=== PATIENT | female | born 1965 | race Caucasian/White ===

== ENCOUNTER 2023-01-17 12:58 | Inpatient (IN) | payer MEDICAID, OTHER ==
[~2023-01-17] VITALS: Ht 157.5 cm; Wt 47.2 kg
[2023-01-17] MEDS ORDERED: LORAZEPAM 2MG/ML CPJ IV ONE ×2 (14:00→19:15)
[2023-01-17] MEDS ORDERED: IOHEXOL-350 100 ML BOTTLE ONE (14:37)
[2023-01-17 16:54] LABS: BASOPHILS % 0.5 % (0.0-2.0); EOSINOPHILS % 0.5 % (0.0-5.0); HEMATOCRIT. 37.1 % (36.0-48.0); HEMOGLOBIN. 12.8 g/dL (12.0-16.0); LYMPHOCYTES % 8.9 % (20.0-50.0); MEAN CORPUSCULAR HEMOGLOBIN 33.8 pg (28.0-32.0); MEAN CORPUSCULAR HGB CONC 34.4 g/dL (31.0-37.0); MEAN CORPUSCULAR VOLUME 98.4 fL (81.0-99.0); MONOCYTES % 4.8 % (2.0-8.0); NEUTROPHILS % 85.3 % (40.0-76.0); RED BLOOD CELL COUNT 3.77 mill/uL (4.2-5.4); RED CELL DISTRIBUTION WIDTH 12.7 % (11.6-14.6); WHITE BLOOD COUNT 6.6 x1000/uL (4.5-11.0)
[2023-01-17 16:58] LABS: DIFFERENTIAL COMMENT 1
[2023-01-17 17:00] LABS: CHLORIDE 100 mEq/L (98-107); INDEX HEMOLYSI 1 (1-3); INDEX ICTERIC 1 (1-4); INDEX LIPEMIC 1 (1-3); POTASSIUM 4.2 mEq/L (3.5-5.1); SODIUM 132 mEq/L (136-145)
[2023-01-17 17:11] LABS: ALANINE AMINOTRANSFERASE 67 IU/L (13-61); ALBUMIN 3.9 g/dL (3.4-5.0); ASPARTATE AMINOTRANSFERASE 67 IU/L (15-37); BILIRUBIN TOTAL 0.5 mg/dL (0.1-1.0); CALCIUM 9.1 mg/dL (8.5-10.1); CARBON DIOXIDE 28 mEq/L (21-32); CREATININE 0.5 mg/dL (0.6-1.3); ETHANOL BLOOD < 10 mg/dL (-10); GLUCOSE 91 mg/dL (70-105); PROTEIN TOTAL 8.7 g/dL (6.0-8.3); UREA NITROGEN BLOOD 9 mg/dL (7-21)
[2023-01-17 17:30] LABS: AMMONIA 38 uMol/L (<32)
[2023-01-17 17:31] LABS: INR 1.1; PROTHROMBIN TIME 11.3 sec (9.6-11.0)
[2023-01-17 17:33] LABS: PLATELET 175 x1000/uL (130-400)
[2023-01-17 17:34] LABS: MEAN PLATELET VOLUME 8.4 fl (7.4-10.4)
[2023-01-17 17:37] LABS: TROPONIN I HIGH SENSITIVITY 354 ng/L (<54)
[2023-01-17] MEDS ORDERED: ACETAMINOPHEN 325MG TABLET PO PRN ×2 (20:15)
[2023-01-17] MEDS ORDERED: ONDANSETRON HCL 4MG/2ML INJ IV PRN (20:15)
[2023-01-17] MEDS ORDERED: DOCUSATE SODIUM 100MG CAPSULE PO PRN (20:15)
[2023-01-17] MEDS ORDERED: LORAZEPAM 0.5MG TABLET PO PRN (20:15)
[2023-01-17] MEDS ORDERED: NA PHOS,M-B/NA PHOS,DI-BA ENEMA 118ML PR PRN (20:15)
[2023-01-17] MEDS ORDERED: CLONIDINE 0.1MG TABLET PO PRN (20:15)
[2023-01-17] MEDS ORDERED: IPRATROPIUM/ALBUTEROL 0.5-3(2.5)MG/3ML NEB HHN PRN (20:15)
[2023-01-17] MEDS ORDERED: MAGNESIUM/ALUMINUM HYDROXIDE/SIMETHICONE 30ML UDC PO PRN (20:15)
[2023-01-17] MEDS ORDERED: LEVETIRACETAM 1000MG PREMIX 1,000 ML IV NR (20:15)
[2023-01-17] MEDS ORDERED: GUAIFENESIN 200MG/10ML SUGAR FREE UDC PO PRN (20:15)
[2023-01-17] MEDS ORDERED: NITROGLYCERIN 50MG PREMIX 250 ML IV SCH (22:30)
[2023-01-17] MEDS ORDERED: SODIUM CHLORIDE 0.9% 1,000 ML IV SCH (23:45)
[2023-01-18] MEDS: ENOXAPARIN 40MG/0.4ML SYR SUBCUT SCH ×2 (00:40→21:24)
[2023-01-18] MEDS ORDERED: LEVETIRACETAM 500 MG in SODIUM CHLORIDE 0.9% 100 ML IV SCH (01:00)
[2023-01-18 01:34] LABS: CREATINE KINASE MB FRACTION 7.7 ng/mL (0.5-3.6)
[2023-01-18] MEDS ORDERED: LORAZEPAM 2MG/ML CPJ IV NR (01:45)
[2023-01-18] MEDS ORDERED: FOLIC ACID 1 MG, THIAMINE HCL 100 MG, MVI, ADULT NO.1 10 ML in SODIUM CHLORIDE 0.9% 1,0... IV NR ×4 (02:00)
[2023-01-18 02:34] LABS: CLARITY URINE CLEAR (CLEAR); COLOR URINE YELLOW (YELLOW); GLUCOSE URINE NEGATIVE (NEGATIVE); KETONES URINE 1+ (NEGATIVE); LEUKOCYTE ESTERASE URINE 1+ (NEGATIVE); NITRITE URINE POSITIVE (NEGATIVE); OCCULT BLOOD URINE 3+ (NEGATIVE); PH URINE 5.5 (4.5-8.0); PROTEIN URINE NEGATIVE (NEGATIVE); SPECIFIC GRAVITY URINE 1.049 (1.005-1.030); UROBILINOGEN URINE 0.2 E.U./dL (0.2-1.0)
[2023-01-18 02:45] LABS: *AMPHETAMINES SCREEN URINE PRESUMTIVE POSITIVE (NEGATIVE); *BARBITURATES SCREEN URINE NEGATIVE (NEGATIVE); *BENZODIAZEPINES SCREEN URINE NEGATIVE (NEGATIVE); *COCAINE SCREEN URINE NEGATIVE (NEGATIVE); CANNABINOID URINE SCREEN NEGATIVE (NEGATIVE); ECSTASY MDMA SCREEN URINE CONF.TEST INDICATED (NEGATIVE); METHADONE URINE SCREEN NEGATIVE (NEGATIVE); OPIATES URINE SCREEN NEGATIVE (NEGATIVE); PHENCYCLIDINE URINE SCREEN PRESUMTIVE POSITIVE (NEGATIVE)
[2023-01-18 02:47] LABS: WBC URINE 15-25 /hpf (0-2)
[2023-01-18 02:48] LABS: BACTERIA URINE 3+; SQUAMOUS EPITHELIAL CELL URINE RARE /lpf (RARE/1+)
[2023-01-18 03:30] VITALS: BP 104/66; PULSE 79; RESP 12; TEMP 97.9
[2023-01-18] MEDS: LEVETIRACETAM 500MG PREMIX 100 ML IV SCH ×2 (05:41→18:14)
[2023-01-18 06:11] LABS: BASOPHILS % 0.8 % (0.0-2.0); EOSINOPHILS % 0.2 % (0.0-5.0); HEMATOCRIT. 36.8 % (36.0-48.0); HEMOGLOBIN. 12.7 g/dL (12.0-16.0); LYMPHOCYTES % 13.4 % (20.0-50.0); MEAN CORPUSCULAR HEMOGLOBIN 33.8 pg (28.0-32.0); MEAN CORPUSCULAR HGB CONC 34.6 g/dL (31.0-37.0); MEAN CORPUSCULAR VOLUME 97.6 fL (81.0-99.0); MEAN PLATELET VOLUME 8.8 fl (7.4-10.4); MONOCYTES % 10.1 % (2.0-8.0); NEUTROPHILS % 75.5 % (40.0-76.0); PLATELET 176 x1000/uL (130-400); RED BLOOD CELL COUNT 3.77 mill/uL (4.2-5.4); RED CELL DISTRIBUTION WIDTH 12.5 % (11.6-14.6); WHITE BLOOD COUNT 5.2 x1000/uL (4.5-11.0)
[2023-01-18] MEDS: LORAZEPAM 2MG/ML CPJ IV PRN ×2 (06:36→13:04)
[2023-01-18 07:09] LABS: CHLORIDE 100 mEq/L (98-107); INDEX HEMOLYSI 1 (1-3); INDEX ICTERIC 1 (1-4); INDEX LIPEMIC 1 (1-3); POTASSIUM 3.5 mEq/L (3.5-5.1); SODIUM 132 mEq/L (136-145)
[2023-01-18 07:21] LABS: CREATINE KINASE MB FRACTION 8.8 ng/mL (0.5-3.6)
[2023-01-18] MEDS ORDERED: CEFTRIAXONE 1GM PREMIX 50 ML IV SCH (07:30)
[2023-01-18 07:34] LABS: ALANINE AMINOTRANSFERASE 57 IU/L (13-61); ALBUMIN 3.7 g/dL (3.4-5.0); ASPARTATE AMINOTRANSFERASE 48 IU/L (15-37); BILIRUBIN TOTAL 0.7 mg/dL (0.1-1.0); CALCIUM 8.8 mg/dL (8.5-10.1); CARBON DIOXIDE 22 mEq/L (21-32); CREATININE 0.4 mg/dL (0.6-1.3); GLUCOSE 80 mg/dL (70-105); T4 FREE 0.76 ng/dL (0.76-1.46); THYROID STIMULATING HORMONE 0.71 uIU/mL (0.36-3.74); UREA NITROGEN BLOOD 13 mg/dL (7-21)
[2023-01-18 08:00] VITALS: BP 121/84; PULSE 78; RESP 20; TEMP 97
[2023-01-18] MEDS ORDERED: ASPIRIN 300MG SUPP PR SCH (09:00)
[2023-01-18] MEDS ORDERED: THIAMINE HCL 100 MG/1 ML 2ML VIAL IM SCH (09:00)
[2023-01-18] MEDS ORDERED: FOLIC ACID 1 MG in SODIUM CHLORIDE 0.9% 500 ML IV NR ×2 (10:00→13:00)
[2023-01-18] MEDS: CEFTRIAXONE 1,000 MG in DEXTROSE 5% WATER 50 ML IV SCH (10:05)
[2023-01-18] MEDS: FAMOTIDINE 20MG/2ML VIAL IV SCH (10:06)
[2023-01-18 12:00] VITALS: BP 119/82; PULSE 85; RESP 20; TEMP 97
[2023-01-18 12:05] LABS: T4 FREE 0.74 ng/dL (0.76-1.46)
[2023-01-18 12:39] LABS: BG BASE EXCESS 0.4 mmol/L (-2.0-2.0); BG CARBOXYHEMOGLOBIN 0.4 % (0.5-1.5); BG FRACTION INSPIRED OXYGEN 21; BG HCO3 ACT 24.4 mmol/L (22.0-26.0); BG METHEMOGLOBIN 0.2 % (0.0-1.5); BG OXYHEMOGLOBIN 96.4 % (94.0-97.0); BG PCO2 37.3 mmHg (35.0-45.0); BG PH 7.434 (7.350-7.450); BG PO2 89.8 mmHg (75.0-100.0); BG SAMPLE SITE LEFT BRACHIAL; BG TOTAL HEMOGLOBIN 13.7 g/dL (12.0-18.0); BG VENT MODE ROOM AIR
[2023-01-18] MEDS: SODIUM CHLORIDE 0.9% 1,000 ML IV SCH (12:52)
[2023-01-18] MEDS ORDERED: HALOPERIDOL 0.5MG TABLET PO PRN (13:30)
[2023-01-18 16:00] VITALS: BP 136/76; PULSE 99; RESP 20; TEMP 97
[2023-01-18] MEDS ORDERED: FAMOTIDINE 20MG/2ML VIAL IV SCH (18:15)
[2023-01-18] MEDS: LORAZEPAM 2MG/ML CPJ IM PRN (18:26)
[2023-01-18 20:00] VITALS: BP 131/84; PULSE 108; RESP 18; TEMP 96.9
[2023-01-18 21:09] LABS: TROPONIN I HIGH SENSITIVITY 551 ng/L (<54)
[2023-01-18] MEDS ORDERED: FOLIC ACID 1 MG, THIAMINE HCL 100 MG, MVI, ADULT NO.1 10 ML in DEXTROSE 5% WATER 1,000 ML IV NR ×4 (22:00)
[2023-01-19 00:01] VITALS: BP 117/70; PULSE 94; RESP 18; TEMP 97.4
[2023-01-19] MEDS: LORAZEPAM 2MG/ML CPJ IM PRN ×2 (00:32→17:27)
[2023-01-19 01:57] LABS: TROPONIN I HIGH SENSITIVITY 441 ng/L (<54)
[2023-01-19 04:00] VITALS: BP 133/74; PULSE 97; RESP 18; TEMP 97.1
[2023-01-19] MEDS: LEVETIRACETAM 500MG PREMIX 100 ML IV SCH ×2 (05:17→17:01)
[2023-01-19 05:40] LABS: CALCIUM 8.9 mg/dL (8.5-10.1); CHLORIDE 104 mEq/L (98-107); INDEX HEMOLYSI 1 (1-3); INDEX ICTERIC 1 (1-4); INDEX LIPEMIC 1 (1-3); POTASSIUM 3.8 mEq/L (3.5-5.1); SODIUM 137 mEq/L (136-145)
[2023-01-19 05:43] LABS: BASOPHILS % 0.4 % (0.0-2.0); EOSINOPHILS % 0.2 % (0.0-5.0); HEMATOCRIT. 35.3 % (36.0-48.0); HEMOGLOBIN. 12.3 g/dL (12.0-16.0); LYMPHOCYTES % 18.1 % (20.0-50.0); MEAN CORPUSCULAR HEMOGLOBIN 34.4 pg (28.0-32.0); MEAN CORPUSCULAR HGB CONC 34.9 g/dL (31.0-37.0); MEAN CORPUSCULAR VOLUME 98.6 fL (81.0-99.0); MEAN PLATELET VOLUME 8.6 fl (7.4-10.4); MONOCYTES % 8.6 % (2.0-8.0); NEUTROPHILS % 72.7 % (40.0-76.0); PLATELET 180 x1000/uL (130-400); RED BLOOD CELL COUNT 3.58 mill/uL (4.2-5.4); WHITE BLOOD COUNT 6.9 x1000/uL (4.5-11.0)
[2023-01-19 05:45] LABS: CARBON DIOXIDE 26 mEq/L (21-32); CREATININE 0.5 mg/dL (0.6-1.3); GLUCOSE 81 mg/dL (70-105); UREA NITROGEN BLOOD 12 mg/dL (7-21)
[2023-01-19 07:45] LABS: TROPONIN I HIGH SENSITIVITY 422 ng/L (<54)
[2023-01-19 08:00] VITALS: BP 123/69; PULSE 88; RESP 22; TEMP 98
[2023-01-19] MEDS ORDERED: THIAMINE HCL 100 MG/1 ML 2ML VIAL IM SCH (09:00)
[2023-01-19] MEDS: ASPIRIN 81MG TABLET PO SCH (09:00)
[2023-01-19] MEDS: FAMOTIDINE 20MG/2ML VIAL IV SCH (09:47)
[2023-01-19] MEDS: CEFTRIAXONE 1,000 MG in DEXTROSE 5% WATER 50 ML IV SCH (09:47)
[2023-01-19] MEDS: SODIUM CHLORIDE 0.9% 1,000 ML IV SCH ×2 (10:08→17:37)
[2023-01-19 12:00] VITALS: BP 120/60; PULSE 96; RESP 22; TEMP 98
[2023-01-19] MEDS: LORAZEPAM 2MG/ML CPJ IV PRN (12:28)
[2023-01-19 16:00] VITALS: BP 125/71; PULSE 78; RESP 20; TEMP 97
[2023-01-19 20:00] VITALS: BP 140/79; PULSE 91; RESP 20; TEMP 99
[2023-01-19] MEDS: ENOXAPARIN 40MG/0.4ML SYR SUBCUT SCH (20:33)
[2023-01-19 21:13] LABS: TROPONIN I HIGH SENSITIVITY 247 ng/L (<54)
[2023-01-20] VITALS: BP 132/81; PULSE 88; RESP 20; TEMP 98
[2023-01-20 01:51] LABS: TROPONIN I HIGH SENSITIVITY 224 ng/L (<54)
[2023-01-20] MEDS: LORAZEPAM 2MG/ML CPJ IM PRN ×2 (03:15→03:18)
[2023-01-20 04:00] VITALS: BP 101/58; PULSE 67; RESP 20; TEMP 98.8
[2023-01-20] MEDS: SODIUM CHLORIDE 0.9% 1,000 ML IV SCH ×2 (04:45→14:45)
[2023-01-20] MEDS: LEVETIRACETAM 500MG PREMIX 100 ML IV SCH ×2 (06:42→18:39)
[2023-01-20 07:04] LABS: HEMATOCRIT 32.1 % (36.0-48.0); HEMOGLOBIN 11.1 g/dL (12.0-16.0); MEAN CORPUSCULAR HEMOGLOBIN 34.1 pg (28.0-32.0); MEAN CORPUSCULAR HGB CONC 34.6 g/dL (31.0-37.0); MEAN CORPUSCULAR VOLUME 98.6 fL (81.0-99.0); PLATELET 158 x1000/uL (130-400); RED BLOOD CELL COUNT 3.25 mill/uL (4.2-5.4); RED CELL DISTRIBUTION WIDTH 12.5 % (11.6-14.6); WHITE BLOOD COUNT 4.6 x1000/uL (4.5-11.0)
[2023-01-20 07:33] LABS: CHLORIDE 108 mEq/L (98-107); INDEX HEMOLYSI 1 (1-3); INDEX ICTERIC 1 (1-4); INDEX LIPEMIC 1 (1-3); SODIUM 139 mEq/L (136-145)
[2023-01-20 07:42] LABS: CALCIUM 7.7 mg/dL (8.5-10.1); CARBON DIOXIDE 23 mEq/L (21-32); CREATININE 0.5 mg/dL (0.6-1.3); GLUCOSE 61 mg/dL (70-105); UREA NITROGEN BLOOD 10 mg/dL (7-21)
[2023-01-20 08:00] VITALS: BP 128/77; PULSE 110; RESP 20; TEMP 97.7
[2023-01-20 08:32] LABS: POTASSIUM 2.6 mEq/L (3.5-5.1); TROPONIN I HIGH SENSITIVITY 145 ng/L (<54)
[2023-01-20] MEDS: ASPIRIN 81MG TABLET PO SCH (08:48)
[2023-01-20] MEDS ORDERED: POTASSIUM CHLORIDE 20MEQ TABLET SR PO NR (09:58)
[2023-01-20] MEDS: FAMOTIDINE 20MG/2ML VIAL IV SCH (11:18)
[2023-01-20] MEDS: CEFTRIAXONE 1,000 MG in DEXTROSE 5% WATER 50 ML IV SCH (11:18)
[2023-01-20] MEDS ORDERED: POTASSIUM CHLORIDE INJ 40 MEQ in DEXT 5% WATER 250 ML IV NR (11:30)
[2023-01-20 12:00] VITALS: BP 145/73; PULSE 91; RESP 20; TEMP 98.3
[2023-01-20] MEDS: LORAZEPAM 2MG/ML CPJ IV PRN ×2 (12:05→20:28)
[2023-01-20 16:00] VITALS: BP 130/70; PULSE 78; RESP 16; TEMP 97.9
[2023-01-20 20:00] VITALS: BP 130/65; PULSE 88; RESP 20; TEMP 97.4
[2023-01-20] MEDS: ENOXAPARIN 40MG/0.4ML SYR SUBCUT SCH (20:27)
[2023-01-20 21:25] LABS: PHOSPHORUS 2.5 mg/dL (2.5-4.9)
[2023-01-20 21:29] LABS: CALCIUM 8.6 mg/dL (8.5-10.1); CARBON DIOXIDE 25 mEq/L (21-32); CHLORIDE 106 mEq/L (98-107); GLUCOSE 69 mg/dL (70-105); INDEX HEMOLYSI 1 (1-3); INDEX ICTERIC 1 (1-4); INDEX LIPEMIC 1 (1-3); SODIUM 136 mEq/L (136-145); UREA NITROGEN BLOOD 8 mg/dL (7-21)
[2023-01-20 21:32] LABS: CREATININE 0.5 mg/dL (0.6-1.3)
[2023-01-21] VITALS: BP 125/61; PULSE 86; RESP 20; TEMP 98.2
[2023-01-21] MEDS: SODIUM CHLORIDE 0.9% 1,000 ML IV SCH ×2 (00:24→19:53)
[2023-01-21 04:00] VITALS: BP 127/62; PULSE 91; RESP 20; TEMP 97.2
[2023-01-21] MEDS: LEVETIRACETAM 500MG PREMIX 100 ML IV SCH ×2 (05:57→19:53)
[2023-01-21] MEDS: LORAZEPAM 2MG/ML CPJ IM PRN ×2 (05:58→18:23)
[2023-01-21 08:00] VITALS: BP 101/60; PULSE 62; RESP 20; TEMP 98.1
[2023-01-21 08:11] LABS: HEMATOCRIT 32.8 % (36.0-48.0); HEMOGLOBIN 11.5 g/dL (12.0-16.0); MEAN CORPUSCULAR HEMOGLOBIN 34.1 pg (28.0-32.0); MEAN CORPUSCULAR VOLUME 97.4 fL (81.0-99.0); PLATELET 178 x1000/uL (130-400); RED BLOOD CELL COUNT 3.37 mill/uL (4.2-5.4); RED CELL DISTRIBUTION WIDTH 12.3 % (11.6-14.6); WHITE BLOOD COUNT 5.1 x1000/uL (4.5-11.0)
[2023-01-21 08:36] LABS: CHLORIDE 105 mEq/L (98-107); INDEX HEMOLYSI 1 (1-3); INDEX ICTERIC 1 (1-4); INDEX LIPEMIC 1 (1-3); SODIUM 140 mEq/L (136-145)
[2023-01-21 08:45] LABS: CALCIUM 8.6 mg/dL (8.5-10.1); CARBON DIOXIDE 24 mEq/L (21-32); CREATININE 0.5 mg/dL (0.6-1.3); GLUCOSE 71 mg/dL (70-105); UREA NITROGEN BLOOD 9 mg/dL (7-21)
[2023-01-21] MEDS: ASPIRIN 81MG TABLET PO SCH (09:00)
[2023-01-21 09:04] LABS: POTASSIUM 2.8 mEq/L (3.5-5.1)
[2023-01-21] MEDS ORDERED: POTASSIUM CHLORIDE INJ 40 MEQ in DEXT 5% WATER 250 ML IV ONE (10:15)
[2023-01-21] MEDS ORDERED: DEXT 5%/0.45% NACL 1000ML 1,000 ML IV SCH (10:15)
[2023-01-21] MEDS ORDERED: PANTOPRAZOLE SODIUM 40 MG/VIAL IV ONE (11:30)
[2023-01-21] MEDS: CEFTRIAXONE 1,000 MG in DEXTROSE 5% WATER 50 ML IV SCH (11:30)
[2023-01-21] MEDS ORDERED: POTASSIUM CHLORIDE INJ 40 MEQ in DEXT 5% WATER 250 ML IV NR (11:30)
[2023-01-21] MEDS: FAMOTIDINE 20MG/2ML VIAL IV SCH (11:33)
[2023-01-21 12:00] VITALS: BP 138/72; PULSE 71; RESP 18; TEMP 98.1
[2023-01-21 12:37] LABS: CHLORIDE 106 mEq/L (98-107); INDEX HEMOLYSI 1 (1-3); INDEX ICTERIC 1 (1-4); INDEX LIPEMIC 1 (1-3); POTASSIUM 3.1 mEq/L (3.5-5.1); SODIUM 141 mEq/L (136-145)
[2023-01-21 12:42] LABS: CALCIUM 8.3 mg/dL (8.5-10.1); CARBON DIOXIDE 24 mEq/L (21-32); CREATININE 0.5 mg/dL (0.6-1.3); GLUCOSE 64 mg/dL (70-105); UREA NITROGEN BLOOD 9 mg/dL (7-21)
[2023-01-21] MEDS: HALOPERIDOL LACTATE 5MG/ML VIAL IM PRN (14:11)
[2023-01-21] MEDS: KCL 20MEQ/100ML X 2 FOR TOTAL KCL 40MEQ/200ML IV SCH ×2 (14:12→20:42)
[2023-01-21 16:00] VITALS: BP 119/73; PULSE 78; RESP 20; TEMP 99.9
[2023-01-21 20:00] VITALS: BP 123/80; PULSE 80; RESP 20; TEMP 98.1
[2023-01-21] MEDS: ENOXAPARIN 40MG/0.4ML SYR SUBCUT SCH (20:46)
[2023-01-21] MEDS: LORAZEPAM 2MG/ML CPJ IV PRN (23:11)
[2023-01-22] VITALS (7 sets, daily range): BP systolic 94–151; BP diastolic 58–81; PULSE 70–87; RESP 16–20; TEMP 96.9–99.1; O2SAT 100
[2023-01-22] MEDS: LORAZEPAM 2MG/ML CPJ IM PRN (04:49)
[2023-01-22] MEDS: LEVETIRACETAM 500MG PREMIX 100 ML IV SCH ×2 (05:44→18:57)
[2023-01-22] MEDS: HALOPERIDOL LACTATE 5MG/ML VIAL IM PRN (06:26)
[2023-01-22 07:28] LABS: HEMATOCRIT 34.7 % (36.0-48.0); HEMOGLOBIN 12.2 g/dL (12.0-16.0); MEAN CORPUSCULAR HEMOGLOBIN 34.4 pg (28.0-32.0); MEAN CORPUSCULAR HGB CONC 35.1 g/dL (31.0-37.0); PLATELET 195 x1000/uL (130-400); RED BLOOD CELL COUNT 3.54 mill/uL (4.2-5.4); RED CELL DISTRIBUTION WIDTH 12.5 % (11.6-14.6)
[2023-01-22] MEDS ORDERED: HYDROXYZINE 25MG TABLET PO PRN (08:45)
[2023-01-22 09:09] LABS: CHLORIDE 101 mEq/L (98-107); INDEX HEMOLYSI 1 (1-3); INDEX ICTERIC 1 (1-4); INDEX LIPEMIC 1 (1-3); POTASSIUM 2.9 mEq/L (3.5-5.1); SODIUM 137 mEq/L (136-145)
[2023-01-22 09:14] LABS: CALCIUM 8.5 mg/dL (8.5-10.1); CARBON DIOXIDE 26 mEq/L (21-32); CREATININE 0.5 mg/dL (0.6-1.3); GLUCOSE 74 mg/dL (70-105); UREA NITROGEN BLOOD 8 mg/dL (7-21)
[2023-01-22] MEDS: CEFTRIAXONE 1,000 MG in DEXTROSE 5% WATER 50 ML IV SCH (09:44)
[2023-01-22] MEDS: FAMOTIDINE 20MG/2ML VIAL IV SCH (09:44)
[2023-01-22] MEDS ORDERED: POTASSIUM CHLORIDE 20MEQ/10ML INJ IV ONE (10:45)
[2023-01-22] MEDS: [UNRECOGNIZED DRUG - OTHER] IV SCH ×4 (12:50→21:05)
[2023-01-22] MEDS: SODIUM CHLORIDE 0.9% 1,000 ML IV SCH (15:15)
[2023-01-22] MEDS: ASPIRIN 81MG TABLET PO SCH (17:33)
[2023-01-22] MEDS: ASCORBIC ACID 500 MG TABLET PO SCH (17:33)
[2023-01-22] MEDS: THIAMINE HCL 100MG TABLET PO SCH (17:33)
[2023-01-22] MEDS: FOLIC ACID 1MG TABLET PO SCH (17:33)
[2023-01-22] MEDS: RISPERIDONE 0.5MG TABLET PO SCH (21:00)
[2023-01-22] MEDS: ENOXAPARIN 40MG/0.4ML SYR SUBCUT SCH (21:31)
[2023-01-23] VITALS: BP 106/69; PULSE 67; RESP 18; TEMP 96.9
[2023-01-23 04:00] VITALS: BP 114/61; PULSE 81; RESP 18; TEMP 96.9
[2023-01-23] MEDS: SODIUM CHLORIDE 0.9% 1,000 ML IV SCH ×3 (05:27→21:44)
[2023-01-23] MEDS: LORAZEPAM 2MG/ML CPJ IV PRN ×2 (05:27→17:55)
[2023-01-23] MEDS: LEVETIRACETAM 500MG PREMIX 100 ML IV SCH ×2 (05:34→17:55)
[2023-01-23 08:00] VITALS: BP 115/73; PULSE 63; RESP 20; TEMP 98.5
[2023-01-23] MEDS ORDERED: THIAMINE HCL 100MG TABLET PO SCH (09:00)
[2023-01-23] MEDS ORDERED: ASCORBIC ACID 500 MG TABLET PO SCH (09:00)
[2023-01-23] MEDS ORDERED: FOLIC ACID 1MG TABLET PO SCH (09:00)
[2023-01-23] MEDS: FAMOTIDINE 20MG/2ML VIAL IV SCH (09:31)
[2023-01-23] MEDS: FOLIC ACID 1MG TABLET PO SCH (09:32)
[2023-01-23] MEDS: ASCORBIC ACID 500 MG TABLET PO SCH (09:32)
[2023-01-23] MEDS: ASPIRIN 81MG TABLET PO SCH (09:32)
[2023-01-23] MEDS: RISPERIDONE 0.5MG TABLET PO SCH ×2 (09:32→21:43)
[2023-01-23] MEDS: THIAMINE HCL 100MG TABLET PO SCH (09:32)
[2023-01-23] MEDS: CEFTRIAXONE 1,000 MG in DEXTROSE 5% WATER 50 ML IV SCH (09:46)
[2023-01-23 11:07] LABS: HEMATOCRIT 37.3 % (36.0-48.0); HEMOGLOBIN 12.6 g/dL (12.0-16.0); MEAN CORPUSCULAR HEMOGLOBIN 33.4 pg (28.0-32.0); MEAN CORPUSCULAR HGB CONC 33.9 g/dL (31.0-37.0); MEAN CORPUSCULAR VOLUME 98.4 fL (81.0-99.0); PLATELET 202 x1000/uL (130-400); RED BLOOD CELL COUNT 3.78 mill/uL (4.2-5.4); RED CELL DISTRIBUTION WIDTH 12.4 % (11.6-14.6); WHITE BLOOD COUNT 5.2 x1000/uL (4.5-11.0)
[2023-01-23 11:24] LABS: CALCIUM 9.2 mg/dL (8.5-10.1); CARBON DIOXIDE 30 mEq/L (21-32); CHLORIDE 105 mEq/L (98-107); INDEX HEMOLYSI 1 (1-3); INDEX ICTERIC 1 (1-4); INDEX LIPEMIC 1 (1-3); POTASSIUM 3.1 mEq/L (3.5-5.1); SODIUM 136 mEq/L (136-145); UREA NITROGEN BLOOD 7 mg/dL (7-21)
[2023-01-23 11:31] LABS: CREATININE 0.5 mg/dL (0.6-1.3); GLUCOSE 169 mg/dL (70-105)
[2023-01-23 12:00] VITALS: BP 109/64; PULSE 71; RESP 18; TEMP 97
[2023-01-23 16:00] VITALS: BP 97/53; PULSE 83; RESP 20; TEMP 98.1
[2023-01-23 20:00] VITALS: BP 95/61; PULSE 86; RESP 18; TEMP 97.1
[2023-01-23] MEDS: ENOXAPARIN 40MG/0.4ML SYR SUBCUT SCH (21:43)
[2023-01-24] VITALS: BP 92/60; PULSE 76; RESP 16; TEMP 96.9
[2023-01-24 04:00] VITALS: BP 90/57; PULSE 65; RESP 16; TEMP 96.9
[2023-01-24] MEDS: LORAZEPAM 2MG/ML CPJ IV PRN (05:49)
[2023-01-24] MEDS: LEVETIRACETAM 500MG PREMIX 100 ML IV SCH ×2 (05:49→16:53)
[2023-01-24 08:00] VITALS: BP 100/57; PULSE 71; RESP 20; TEMP 96.5
[2023-01-24] MEDS: FAMOTIDINE 20MG/2ML VIAL IV SCH (08:17)
[2023-01-24] MEDS: ASCORBIC ACID 500 MG TABLET PO SCH (08:18)
[2023-01-24] MEDS: ASPIRIN 81MG TABLET PO SCH (08:18)
[2023-01-24] MEDS: FOLIC ACID 1MG TABLET PO SCH (08:18)
[2023-01-24] MEDS: RISPERIDONE 0.5MG TABLET PO SCH ×2 (08:18→21:41)
[2023-01-24] MEDS: THIAMINE HCL 100MG TABLET PO SCH (08:18)
[2023-01-24] MEDS: SODIUM CHLORIDE 0.9% 1,000 ML IV SCH ×3 (08:19→20:39)
[2023-01-24 08:24] LABS: CHLORIDE 108 mEq/L (98-107); INDEX HEMOLYSI 1 (1-3); INDEX ICTERIC 1 (1-4); INDEX LIPEMIC 1 (1-3); POTASSIUM 3.4 mEq/L (3.5-5.1); SODIUM 137 mEq/L (136-145)
[2023-01-24 08:31] LABS: CALCIUM 8.5 mg/dL (8.5-10.1); CARBON DIOXIDE 29 mEq/L (21-32); CREATININE 0.5 mg/dL (0.6-1.3); GLUCOSE 97 mg/dL (70-105); UREA NITROGEN BLOOD 9 mg/dL (7-21)
[2023-01-24 08:34] LABS: HEMATOCRIT 34.8 % (36.0-48.0); HEMOGLOBIN 11.9 g/dL (12.0-16.0); MEAN CORPUSCULAR HEMOGLOBIN 33.7 pg (28.0-32.0); MEAN CORPUSCULAR HGB CONC 34.1 g/dL (31.0-37.0); MEAN CORPUSCULAR VOLUME 98.9 fL (81.0-99.0); PLATELET 205 x1000/uL (130-400); RED BLOOD CELL COUNT 3.52 mill/uL (4.2-5.4); RED CELL DISTRIBUTION WIDTH 12.4 % (11.6-14.6); WHITE BLOOD COUNT 4.6 x1000/uL (4.5-11.0)
[2023-01-24] MEDS ORDERED: POTASSIUM CHLORIDE 20MEQ/PACKET PO NR (10:15)
[2023-01-24 12:00] VITALS: BP 90/50; PULSE 79; RESP 18; TEMP 96
[2023-01-24] MEDS: HALOPERIDOL LACTATE 5MG/ML VIAL IM PRN (15:52)
[2023-01-24 16:00] VITALS: BP 93/48; PULSE 88; RESP 20; TEMP 97.5
[2023-01-24 20:00] VITALS: BP 94/58; PULSE 74; RESP 18; TEMP 97.1
[2023-01-24] MEDS: ENOXAPARIN 40MG/0.4ML SYR SUBCUT SCH (21:41)
[2023-01-25] VITALS: BP 92/57; PULSE 74; RESP 16; TEMP 97.1
[2023-01-25] MEDS: LORAZEPAM 2MG/ML CPJ IV PRN ×2 (03:37→13:25)
[2023-01-25 04:35] LABS: HEMATOCRIT 34.7 % (36.0-48.0); HEMOGLOBIN 11.8 g/dL (12.0-16.0); MEAN CORPUSCULAR HEMOGLOBIN 33.5 pg (28.0-32.0); MEAN CORPUSCULAR HGB CONC 34.1 g/dL (31.0-37.0); MEAN CORPUSCULAR VOLUME 98.2 fL (81.0-99.0); PLATELET 220 x1000/uL (130-400); RED BLOOD CELL COUNT 3.53 mill/uL (4.2-5.4); RED CELL DISTRIBUTION WIDTH 12.4 % (11.6-14.6); WHITE BLOOD COUNT 5.3 x1000/uL (4.5-11.0)
[2023-01-25 05:00] VITALS: BP 93/51; PULSE 70; RESP 16; TEMP 97.1
[2023-01-25 05:15] LABS: CHLORIDE 109 mEq/L (98-107); INDEX HEMOLYSI 1 (1-3); INDEX ICTERIC 1 (1-4); INDEX LIPEMIC 1 (1-3); POTASSIUM 3.8 mEq/L (3.5-5.1); SODIUM 138 mEq/L (136-145)
[2023-01-25 05:26] LABS: CALCIUM 8.5 mg/dL (8.5-10.1); CARBON DIOXIDE 29 mEq/L (21-32); CREATININE 0.5 mg/dL (0.6-1.3); GLUCOSE 92 mg/dL (70-105); UREA NITROGEN BLOOD 8 mg/dL (7-21)
[2023-01-25] MEDS: LEVETIRACETAM 500MG PREMIX 100 ML IV SCH ×2 (06:14→17:10)
[2023-01-25] MEDS: SODIUM CHLORIDE 0.9% 1,000 ML IV SCH ×2 (06:53→21:28)
[2023-01-25 08:00] VITALS: BP 112/60; PULSE 75; RESP 18; TEMP 97.3
[2023-01-25] MEDS: THIAMINE HCL 100MG TABLET PO SCH (08:42)
[2023-01-25] MEDS: FOLIC ACID 1MG TABLET PO SCH (08:43)
[2023-01-25] MEDS: FAMOTIDINE 20MG/2ML VIAL IV SCH (08:43)
[2023-01-25] MEDS: ASPIRIN 81MG TABLET PO SCH (08:43)
[2023-01-25] MEDS: ASCORBIC ACID 500 MG TABLET PO SCH (08:43)
[2023-01-25] MEDS: RISPERIDONE 0.5MG TABLET PO SCH ×2 (08:43→21:33)
[2023-01-25 12:00] VITALS: BP 116/59; PULSE 76; RESP 20; TEMP 98
[2023-01-25 16:00] VITALS: BP 101/68; PULSE 67; RESP 18; TEMP 96.8
[2023-01-25 20:00] VITALS: BP 110/71; PULSE 68; RESP 16; TEMP 97.1
[2023-01-25] MEDS: ENOXAPARIN 40MG/0.4ML SYR SUBCUT SCH (21:34)
[2023-01-26] VITALS: BP 98/55; PULSE 78; RESP 16; TEMP 97.1
[2023-01-26 04:00] VITALS: BP 102/60; PULSE 72; RESP 16; TEMP 97.1
[2023-01-26] MEDS: LORAZEPAM 2MG/ML CPJ IV PRN (06:55)
[2023-01-26 08:00] VITALS: BP 107/53; PULSE 74; RESP 20; TEMP 97.4
[2023-01-26] MEDS ORDERED: LEVETIRACETAM 500MG PREMIX 100 ML IV SCH (09:00)
[2023-01-26] MEDS: ASPIRIN 81MG TABLET PO SCH (09:25)
[2023-01-26] MEDS: FAMOTIDINE 20MG/2ML VIAL IV SCH (09:25)
[2023-01-26] MEDS: SODIUM CHLORIDE 0.9% 1,000 ML IV SCH (09:26)
[2023-01-26] MEDS: RISPERIDONE 0.5MG TABLET PO SCH (09:26)
[2023-01-26] MEDS: THIAMINE HCL 100MG TABLET PO SCH (09:26)
[2023-01-26] MEDS: FOLIC ACID 1MG TABLET PO SCH (09:26)
[2023-01-26] MEDS: ASCORBIC ACID 500 MG TABLET PO SCH (09:26)
[2023-01-26] MEDS ORDERED: THIA100T72 PO (11:26)
[2023-01-26] MEDS ORDERED: ASCO500T20 PO (11:26)
[2023-01-26] MEDS ORDERED: RISP05 PO (11:26)
[2023-01-26 12:00] VITALS: BP 100/96; PULSE 64; RESP 18; TEMP 98.2
[2023-01-26 14:10] VITALS: BP 100/51; PULSE 64; TEMP 98.2; O2SAT 96
== END 2023-01-26 15:14 | disposition home or self-care (01) | DRG 52 ==
LOC: ER 13:09 → SUPCPDRO 19:06 → EDBD 01-18 02:56 → 8WST 01-18 02:56
PROVIDERS: ADMIT Internal Medicine; ATTEND Internal Medicine
DX: G92.8 Other toxic encephalopathy (principal); I21.A1 Myocardial infarction type 2; G40.901 Epilepsy, unspecified, not intractable, with status epilepticus; F29 Unspecified psychosis not due to a substance or known physiological condition; N39.0 Urinary tract infection, site not specified; F19.10 Other psychoactive substance abuse, uncomplicated; E87.6 Hypokalemia; F10.229 Alcohol dependence with intoxication, unspecified; R74.01 Elevation of levels of liver transaminase levels; Z59.00 Homelessness unspecified; Z78.1 Physical restraint status; Z82.0 Family history of epilepsy and other diseases of the nervous system
CPT/HCPCS: 36415; 36600; 70496; 70498; 71045; 80048; 80053; 80061; 80305; 80320; 81003; 82140; 82375; 82550; 82553; 82805; 82962; 83036; 83605; 83735; 83880; 84100; 84439; 84443; 84484; 85025; 85027; 85379; 87186; 92610; 93005; 93306; 93970; 97116; 97162; 97166; 99291; C1893; C9113; J0696; J1630; J1650; J1953; J2060; J3411; J3480; J3490; J7030; J7040; J7060; J7070; Q9967; G0480

== ENCOUNTER 2023-01-31 06:00 | Emergency (ER) | payer MEDICAID, OTHER ==
[~2023-01-31] VITALS: Ht 154.9 cm; Wt 53.0 kg
[~2023-01-31 06:00] MED LIST: ASCO500T20 PO; RISP05 PO; THIA100T72 PO
[2023-01-31 06:14] VITALS: BP 104/62; TEMP 98; O2SAT 98
[2023-01-31 06:26] VITALS: PULSE 70; RESP 18
== END 2023-01-31 06:46 | disposition left against medical advice (07) ==
LOC: ER 06:00
DX: R55 Syncope and collapse (principal); Z53.21 Procedure and treatment not carried out due to patient leaving prior to being seen by health care provider
CPT/HCPCS: 99281

== ENCOUNTER 2023-01-31 19:53 | Emergency (ER) | payer OTHER ==
[~2023-01-31] VITALS: Ht 152.4 cm; Wt 46.9 kg
[2023-01-31 20:11] VITALS: BP 106/56; O2SAT 100
[2023-01-31 20:47] LABS: CLARITY URINE CLEAR (CLEAR); COLOR URINE YELLOW (YELLOW); GLUCOSE URINE NEGATIVE (NEGATIVE); KETONES URINE NEGATIVE (NEGATIVE); LEUKOCYTE ESTERASE URINE NEGATIVE (NEGATIVE); NITRITE URINE NEGATIVE (NEGATIVE); OCCULT BLOOD URINE NEGATIVE (NEGATIVE); PH URINE 6.5 (4.5-8.0); PROTEIN URINE NEGATIVE (NEGATIVE); SPECIFIC GRAVITY URINE 1.002 (1.005-1.030); UROBILINOGEN URINE 0.2 E.U./dL (0.2-1.0)
[2023-01-31 20:58] LABS: *AMPHETAMINES SCREEN URINE NEGATIVE (NEGATIVE); *BARBITURATES SCREEN URINE NEGATIVE (NEGATIVE); *BENZODIAZEPINES SCREEN URINE NEGATIVE (NEGATIVE); *COCAINE SCREEN URINE NEGATIVE (NEGATIVE); CANNABINOID URINE SCREEN NEGATIVE (NEGATIVE); ECSTASY MDMA SCREEN URINE NEGATIVE (NEGATIVE); METHADONE URINE SCREEN NEGATIVE (NEGATIVE); OPIATES URINE SCREEN NEGATIVE (NEGATIVE); PHENCYCLIDINE URINE SCREEN PRESUMTIVE POSITIVE (NEGATIVE)
[2023-01-31 21:49] LABS: BASOPHILS % 1.5 % (0.0-2.0); EOSINOPHILS % 5.7 % (0.0-5.0); HEMATOCRIT. 30.1 % (36.0-48.0); HEMOGLOBIN. 10.6 g/dL (12.0-16.0); LYMPHOCYTES % 20.6 % (20.0-50.0); MEAN CORPUSCULAR HEMOGLOBIN 33.9 pg (28.0-32.0); MEAN CORPUSCULAR HGB CONC 35.2 g/dL (31.0-37.0); MEAN CORPUSCULAR VOLUME 96.4 fL (81.0-99.0); NEUTROPHILS % 59.2 % (40.0-76.0); PLATELET 333 x1000/uL (130-400); RED BLOOD CELL COUNT 3.12 mill/uL (4.2-5.4); RED CELL DISTRIBUTION WIDTH 11.8 % (11.6-14.6); WHITE BLOOD COUNT 5.1 x1000/uL (4.5-11.0)
[2023-01-31 21:59] LABS: CHLORIDE 100 mEq/L (98-107); INDEX HEMOLYSI 1 (1-3); INDEX ICTERIC 1 (1-4); INDEX LIPEMIC 1 (1-3); POTASSIUM 3.7 mEq/L (3.5-5.1); SODIUM 132 mEq/L (136-145)
[2023-01-31 22:08] LABS: ALANINE AMINOTRANSFERASE 93 IU/L (13-61); ALBUMIN 3.2 g/dL (3.4-5.0); ASPARTATE AMINOTRANSFERASE 60 IU/L (15-37); BILIRUBIN TOTAL 0.3 mg/dL (0.1-1.0); CALCIUM 8.7 mg/dL (8.5-10.1); CARBON DIOXIDE 28 mEq/L (21-32); CREATININE 0.6 mg/dL (0.6-1.3); ETHANOL BLOOD < 10 mg/dL (-10); GLUCOSE 104 mg/dL (70-105); UREA NITROGEN BLOOD 13 mg/dL (7-21)
[2023-01-31 23:09] VITALS: PULSE 71; RESP 16; TEMP 98.4
== END 2023-01-31 23:11 | disposition home or self-care (01) ==
LOC: ER 19:53
DX: F16.10 Hallucinogen abuse, uncomplicated (principal); D64.9 Anemia, unspecified; R53.81 Other malaise; F10.229 Alcohol dependence with intoxication, unspecified; Z98.890 Other specified postprocedural states; Y90.0 Blood alcohol level of less than 20 mg/100 ml
CPT/HCPCS: 36415; 80053; 80305; 80320; 81003; 85025; 99283; G0480